=== PATIENT | male | born 1995 | race Caucasian/White ===

== ENCOUNTER → 2023-08-17 | Outpatient (CLI) | payer OTHER, SELFPAY ==
--- NOTE | 2023-08-17 16:27 | US_ITS ---
ACR Level 3 findings have been noted. An addendum which confirms receipt of the report will follow. INDICATION: CKD IV EXAMINATION: Ultrasound US Kidney(s) complete (eg, kidneys and bladder) TECHNIQUE: Delvalle scale and color doppler images were obtained of the kidneys. COMPARISON: None. FINDINGS: RIGHT KIDNEY: 5.8 x 4.0 x 3.2 cm. There is no hydronephrosis. No shadowing calculus, focal lesion or perinephric collection is demonstrated. Cortical atrophy with normal echotexture. LEFT KIDNEY: 8.2 x 5.3 x 3.9 cm. There is no hydronephrosis. Solid, exophytic lesion, 2.8 x 2.6 x 2.5 cm interpolar region with internal Doppler color flow. URINARY BLADDER: No acute abnormality. US/Kidney and Bladder IMPRESSION: No hydronephrosis bilaterally. Solid, 2.8 cm exophytic mass left kidney. Findings represent renal cell carcinoma until proven otherwise. Atrophic right kidney. Electronically Signed: Hernan Huff MD at 18:00 EST ,
== END | disposition home or self-care (01) ==
LOC: US 16:22
PROVIDERS: PCP Pediatrics; Referring Provider Internal Medicine Nephrology; Visit Provider Internal Medicine Nephrology
DX: N18.4 Chronic kidney disease, stage 4 (severe) (principal)
CPT/HCPCS: 76770

== ENCOUNTER → 2023-09-19 | Outpatient (CLI) | payer OTHER, SELFPAY ==
--- OUTSIDE RECORDS SUMMARY | 2023-09-19 07:10 | XMS RPT_ITS | CCD ---
Author Name Unknown Address [address] [place] [address] Organization [facility] Care Team Providers Care Artificial Flowers Supervisor Name Role Phone Esme Avalos PHY WO ID~[id number] Unavailable Unava ilable Allergies Allergy Classification Reported Allergen(s) Allergy Type Date of Onset Reaction(s) Facility (1 source) Cetirizine; Translations: [CETIRIZINE HCL] Drug Allergy 08-30-2005 [facility] Repository (1 source) montelukast; Translations: [MONTELUKAST SODIUM] Drug Allergy 08-30-2005 [facility] Repository Problems Active Problems Problem Classification Problem Date Documented Da te Episodic/Chronic Chronic kidney disease (1 source) Chronic kidney disease, stage 4 (severe); Translations: [Chronic kidney disease, stage IV (severe) ([facility])] Onset: 09-05-2023 Chronic Nutritional deficiencies (1 source) Vitamin D deficiency, unspecified; Translations: [Vitamin D deficiency] Onset: 09-05-2023 Chronic Past or Other Problems Problem Classification Problem Date Documented Da te Episodic/Chronic Genitourinary symptoms and ill-defined conditions (1 source) Proteinuria, unspecified; Translations: [Proteinuria, unspecified type] Onset: 07-11-2008 Episodic Results Test Name Value Interpretation Reference Range Facil ity Encounters Encounter Date Encounter Type Care Provider Facility Start: 09-05-2023 End: 09-06-2023 ambulatory Facility:[facility] Start: 03-07-2023 End: 03-08-2023 ambulatory Facility:[facility] Start: 09-25-2022 End: 09-25-2022 ambulatory Facility:[facility] Start: 05-27-2017 End: 05-27-2017 Emergency department patient visit Esme Avalos Facility:B Payers Date Payer Category Payer Private Health Insurance [id number] 2017 Unknown [id number] Summary Purpose Family History No Family History Records FoundNo Family History Records FoundNo Family History Records Found Advance Directives No Advanced Directives Records FoundNo Advanced Directives Records FoundNo Advanced Directives Records Found Additional Source Comments (unrecognized sect ion and content) No Status Records FoundNo Status Records FoundNo Status Records Found INFORMATION SOURCE (unrecogn ized section and content) DATE CREATED AUTHOR AUTHOR'S ORGANIZ ATION 02/05/2019 [facility] DATE CREATED AUTHOR AUTHOR'S ORGANIZ ATION 09/07/2023 [facility] FOR RECORDS PERTAINING TO PATIENTS WHO ARE OR HAVE BEEN ENROLLED IN A CHEMICAL DEPENDENCY/SUBSTANCEABUSE PROGRAM, SOME INFORMATION MAY BE OMITTED. This clinical summary was aggregated from multiple sources. Caution should be exercised in using it in the provision of clinical care. This summary normalizes information from multiple sources, and as a consequence, information in this document may materially change the coding, format and clinical context of patient data. In addition, data may be omitted in some cases. CLINICAL DECISIONS SHOULD BE BASED ON THE PRIMARY CLINICAL RECORDS. [employer] [facility]. provides no warranty or guarantee of the accuracy or completeness of information in this document.
--- NOTE | 2023-09-19 07:14 | MRI_ITS ---
STUDY: MRI ABDOMEN WITHOUT CONTRAST REASON FOR EXAM: Male, 27 years old. RENAL MASS,STAGE IV CHRONIC KIDNEY DISEASE TECHNIQUE: Standardized fat and water weighted pulse sequences were obtained in all 3 orthogonal planes. COMPARISON: Renal ultrasound dated August 17, 2023 FINDINGS: The visualized lung bases are unremarkable. The visualized portions of the heart are within normal limits. Normal liver. Normal gallbladder and extrahepatic biliary system. Normal spleen. Normal pancreas. Normal bilateral adrenal glands. There is moderate cortical atrophy of the right kidney, consistent with chronic medical renal disease. There is moderate cortical atrophy of the left kidney, consistent with chronic medical renal disease. There is a mass arising from the midpole and lateral aspect of the left kidney measuring 3.18 x 2.64 cm that is partially exophytic and considered a malignant neoplasm until proven otherwise. No IV contrast was administered therefore we are unable to determine if the mass enhances. Alternative considerations include dromedary hump, but malignancy has to be excluded first. Normal visualized stomach. Normal small intestine. Normal colon. Normal abdominal aorta. Normal inferior vena cava. Normal retroperitoneum. Normal abdominal wall. Normal osseous structures. MRI/Abdomen without Contrast IMPRESSION: Again malignant appearing mass arising from the lateral aspect of the left kidney that should be evaluated by urology/oncology. We have no prior imaging studies that would indicate this is a dromedary hump or other developmental lobularity. 1. There is a mass arising from the midpole and lateral aspect of the left kidney measuring 3.18 x 2.64 cm that is partially exophytic and considered a malignant neoplasm until proven otherwise. No IV contrast was administered therefore we are unable to determine if the mass enhances. Alternative considerations include dromedary hump, but malignancy has to be excluded first. 2. Postcontrast MR images should be performed for completeness Electronically Signed: Juancho Dudley MD at 10:[address] [facility] Reading Location ID and State: [id number] / RONAL[place] , Service support ,
== END | disposition home or self-care (01) ==
PROVIDERS: Referring Provider Internal Medicine Nephrology; Visit Provider Internal Medicine Nephrology
DX: N28.89 Other specified disorders of kidney and ureter (principal); N18.4 Chronic kidney disease, stage 4 (severe)
CPT/HCPCS: 74181

== ENCOUNTER 2023-10-09 07:22 | Outpatient (CLI) | payer OTHER, SELFPAY ==
[2023-10-09] VITALS (14 sets, daily range): BP systolic 143–170; BP diastolic 87–105; PULSE 73–96; RESP 18–25; TEMP 36.4; O2SAT 96–100; BMI 44.6
[2023-10-09 07:47] LABS: Hematocrit 44.2 % (40-54); Hemoglobin 14.4 g/dL (13.0-16.5); Mean Corp Hgb Conc 32.6 g/dL (32-36); Mean Corpuscular Hgb 28.1 pg (27.0-32.0); Mean Corpuscular Volume 86.2 fL (80-94); Mean Platelet Vol. 9.9 fl (6.2-12.0); Platelet Count 299 K/mm3 (150-450); RBC Distribution Width SD 40.1 fl (35.1-43.9); Red Blood Count 5.13 M/mm3 (4.6-6.2); White Blood Count 6.8 K/mm3 (4.4-11.0)
--- OUTSIDE RECORDS SUMMARY | 2023-10-09 07:49 | XMS RPT_ITS | CCD ---
Author Name Unknown Address [address] [place] [address] Organization [facility] Care Team Providers Care Floor Supervisor Name Role Phone Esme Avalos PHY WO [phone] Unavailable Unava ilable Allergies Allergy Classification Reported Allergen(s) Allergy Type Date of Onset Reaction(s) Facility (1 source) Cetirizine; Translations: [CETIRIZINE HCL] Drug Allergy 08-30-2005 [facility] Repository (1 source) montelukast; Translations: [MONTELUKAST SODIUM] Drug Allergy 08-30-2005 [facility] Repository Problems Active Problems Problem Classification Problem Date Documented Da te Episodic/Chronic Chronic kidney disease (1 source) Chronic kidney disease, stage 4 (severe); Translations: [Chronic kidney disease, stage IV (severe) ([facility])] Onset: 09-05-2023 Chronic Nutritional deficiencies (1 source) [...] Provider Facility Start: 09-05-2023 End: 09-06-2023 ambulatory Facility:[facility] Start: 03-07-2023 End: 03-08-2023 ambulatory Facility:[facility] Start: 09-25-2022 End: 09-25-2022 ambulatory Facility:[facility] Start: 05-27-2017 End: 05-27-2017 Emergency department patient visit Esme Avalos Facility:B Payers Date Payer Category Payer Private Health Insurance [id number] 2017 Unknown [id number] Summary Purpose Family History No Family History [...] DATE CREATED AUTHOR AUTHOR'S ORGANIZ ATION 02/05/2019 [facility] DATE CREATED AUTHOR AUTHOR'S ORGANIZ ATION 09/07/2023 [facility] FOR RECORDS PERTAINING TO PATIENTS WHO ARE [...] BE BASED ON THE PRIMARY CLINICAL RECORDS. [facility]. provides no warranty or guarantee of the accuracy or completeness of information in this document.
[2023-10-09 08:06] LABS: International Normalized Ratio 1.1; Prothrombin Time (Protime)PT. 14.1 SECONDS (11.7-14.9)
[2023-10-09 08:07] LABS: Partial Thromboplast Time 33.7 Seconds (24.1-36.2)
[2023-10-09] MEDS: 0.9% Saline Lock 10 ML Syringe IV (08:39)
[2023-10-09] MEDS: 0.9% Normal Saline (250mL Bag) 250 ML 15 ML IV (08:39)
[2023-10-09 08:45] LABS: Albumin, Serum 3.3 g/dL (3.2-5.0); BUN 48 mg/dL (7-18); BUN/Creat Ratio 12.9 RATIO (10-20); Calcium,Total 8.7 mg/dL (8.5-10.1); Chloride 113 mmol/L (98-107); Creatinine, Serum 3.71 mg/dL (0.70-1.30); EST Glomerular Filtration Rate 21 mL/min (>60); Est Glom Filt Rate - Afr Amer 26 mL/min (>60); Glucose 100 mg/dL (74-106); Phosphorus 3.6 mg/dL (2.5-4.9); Potassium 4.4 mmol/L (3.5-5.1); Sodium Level 142 mmol/L (136-145)
[2023-10-09] MEDS: Midazolam 2 MG/2 ML Syringe IV (09:04)
[2023-10-09] MEDS: fentaNYL 100 MCG/2 ML Ampul IV (09:05)
[2023-10-09] MEDS: Lidocaine 2% (20 ml mdv) 20 ML Vial INFILT (09:24)
[2023-10-09 09:27] LABS: PTHIN 357.6 pg/mL (18.4-80.1)
[2023-10-09 09:30] LABS: Vitamin D,25 Hydroxy 32.3 ng/mL
--- NOTE | 2023-10-09 09:30 | ASPIGT_PTH ---
PATHOLOGY RESULTS PATIENT: ESTHER BUENROSTRO LOC: CT U#:[id number] AGE/SX: 27/M ROOM: RE10/09/[address]: Dr. Jose Zuñiga MD : 1995 BED: DIS: 10/09/2023 SPEC #: [id number] RECD: 10/09/23 10:00 STATUS: KRISTEN REQ #: [id number] SELVIN: 10/09/23 09:[address]: Jose Zuñiga DEPT: SURGICAL PATHOLOGY RECD BY: Leesa Briones ENTERED: 10/09/23 10:12 SP TYPE: ASP RAD OTHR DR: Dr. Luz Brady MD No Primary Care Phys Consuelo Bradley, SAMINA-C Tissues: Kidney, NOS Procedures: Electron Microscopy (ACH) FNA Specimen Adequacy Sp St Grp II Kidney (ACH) Kidney Biopsy ([facility]) Special Stain Group II Surgery Specimen Level IV Imprint (control) HEADER OPERATION: CT-guided left renal biopsy PRE-OP DIAGNOSIS: Left kidney mass TISSUE SUBMITTED: Left kidney 18-gauge x4 MICROSCOPIC DIAGNOSIS Kidney, needle biopsy: No evidence of malignancy. Chronic changes, including moderate interstitial fibrosis and tubular atrophy, moderate arteriosclerosis, severe arteriolosclerosis and moderate arteriolar hyalinosis, most consistent with hypertensive nephrosclerosis (See Microscopic Description and Comment). COMMENT The specimen is evaluated at the time of biopsy by Dr. Carlson. Immediate Evaluation = Adequate for evaluation. There is no evidence of malignancy in the biopsy specimen. If the biopsy sampling is development representative of the radiographically described mass, the predominant finding in the biopsy is chronic changes, consistent between the pathologic findings and clinical history is recommended. The histopathological findings are most consistent with hypertensive nephrosclerosis given the presence of severe arteriolosclerosis, arteriolar hyalinosis and moderate arteriosclerosis. Hyaline globules in glomeruli are often seen in diabetes, but may be seen as part of the spectrum of hypertensive changes. The vaguely nodular mesangial matrix increase on light microscopy may be part of the general increase in mesangial matrix material and may not represent true nodularity. In the absence of a clinical history of diabetes, electron microscopy was performed to evaluate less common etiologies for nodular glomerulosclerosis. There is no evidence on electron microscopy for alternative etiologies, thus supporting mesangial matrix increase as part of the hypertensive changes. This case was discussed with Dr. Zuñiga on 10/11/23. Case has been reviewed in consultation with Dr. Dalton who concurs with the above diagnosis. IDC:[email or web address] MICROSCOPIC DESCRIPTION The specimen is sent to [facility] for consultation. The H&E-stained section received shows no evidence of malignancy. Using the provided unstained slides, a panel of stains to evaluate the chronic renal disease, PAS, Ruiz sliver, trichrome and an additional H&E stain were performed at [facility]. Sections show multiple cores of renal parenchyma. None of the sections show any evidence of malignancy. There are approximately 17 glomeruli present, 3 of which are globally sclerotic. Multiple glomeruli show hyaline globules. Glomeruli show an increase in mesangial matrix material, highlighted on PAS stains. The increased mesangial matrix material in a few of the glomeruli has a vaguely nodular appearance. Glomeruli show no evidence of segmental scars, crescent formation, necrosis, thrombosis or inflammation. PAS, sliver and trichrome stains show no evidence of glomerular basement membrane double contours, spikes or fuchsinophilic immune-type deposits. Trichrome stain shows interstitial fibrosis and tubular atrophy involving approximately 30-40% of the sampled cortical mass. In areas of scarring, there is a mild inflammatory infiltrate, predominantly composed of lymphocytes and plasma cells. Tubules are unremarkable. Arteries show moderate arteriosclerosis. Arterioles show severe arteriosclerosis involving both afferent and efferent arterioles. There is also moderate arteriolar hyalinosis in some arterioles. No frozen tissue is available for immunofluorescence studies. The formalin-fixed paraffin-embedded tissue was used for electron microscopy studies in order to further revaluate the light microscopy finding of vague nodularity of mesangial matrix increase in the absence of a documented history of diabetes. A portion of the tissue in the block was removed to process the specimen for electron microscopy; some tissue is left in the block for potential future studies. Toluidine blue stained thick sections were prepared and examined. There are five glomeruli present in the tissue selected for electron microscopy studies. A single glomerulus was imaged. The glomerular capillary loops are patent. In the glomerulus imaged, there is no significant increase in mesangial matrix material. The glomerular basement membranes are of approximately normal caliber. There is no significant increase in effacement of visceral epithelial foot processes. There is no evidence of basement membrane duplication or mesangial interposition. There is no evidence of electron-dense immune-type deposits. Tubules appear unremarkable. GROSS DESCRIPTION Received in fixative is one container labeled with the patient's name and designated left kidney. The specimen consists of multiple irregular fragments of urban soft tissue that in aggregate measure 1.5 x 0.3 x 0.1 cm. The specimen is totally submitted in one cassette. / PILLO:piyush 10/09/2023 CPT: [id number], [id number]
--- NOTE | 2023-10-09 10:05 | PCM.OP.PRO ---
Procedure Report Date of Procedure: 10/09/23 Assessment & Plan Assessment/Plan (1) Left renal mass: PLAN: PROCEDURE: CT GUIDED LEFT PERCUTANEOUS KIDNEY BIOPSY. ORDERING PROVIDER: Dr. Zuñiga INDICATION: Male, 27 years old. Left renal mass. PROVIDER: MARTY Adams CONSENT: Written informed consent was obtained having explained the risks, benefits and alternatives in detail with the patient. The specific risk of hemorrhage requiring further treatment or intervention was detailed and accepted. The patient accepted the risks and agreed to proceed. Laboratory review and clinical assessment was performed. PRE-PROCEDURE SEDATION ASSESSMENT: Current history and physical dictated by referring provider and reviewed. No clinical changes since date of exam. Patient has an ASA Class of 1. PROCEDURAL SEDATION PROTOCOL: The Drugs used were: 2 mg Versed, IV, and 50 mcg Fentanyl, IV. The sedation time was: 28 minutes, starting at 9:04 AM and terminated at 9:32 AM. The procedural sedation protocol was independently monitored by the department nurse. RADIATION DOSAGE (If Supplied By Facility): CTDIvol = 28.51 mGy, DLP = 584.61 mGycm Individualized dose optimization techniques were used for this CT. TECHNIQUE: The patient was placed on the CT table in the prone position. Multiple axial images were obtained from the lung base through the caudal extent of the kidneys. An appropriate entry site was identified and a tano made on the skin. The skin overlying the left posterior flank was prepped and draped in sterile fashion. 2% lidocaine was administered subcutaneously for local anesthesia. Using CT guidance, an 18-gauge coaxial biopsy device was advanced to the periphery of the left renal mass. A total of 4 core specimens were obtained. Specimens were microscopically reviewed by pathology in the CT suite and placed in formalin solution for further analysis. The needle was withdrawn. Hemostasis was achieved with manual compression and a sterile dressing was applied. The patient tolerated the procedure well without immediate complications. The patient returned to the holding bay in stable condition for nursing monitoring, per protocol. IMPRESSION: 1. Successful CT guided percutaneous left renal mass biopsy. Pathology results are pending. 2. Procedural Sedation protocol utilized with independent monitoring by the department nurse. Procedures Radiology Radiology CT Procedures: [id number] Biopsy Kidney
[2023-10-09 10:15] LABS: Protein, Urine (Random) 177.9 mg/dL (<11.9); Protein:Creat Ratio 4861 mg/g CRE (0-200)
== END 2023-10-09 23:59 | disposition home or self-care (01) ==
PROVIDERS: Internal Medicine Nephrology; Referring Provider Urology; Visit Provider Urology
DX: I12.9 Hypertensive chronic kidney disease with stage 1 through stage 4 chronic kidney disease, or unspecified chronic kidney disease (principal); N18.4 Chronic kidney disease, stage 4 (severe); E55.9 Vitamin D deficiency, unspecified
CPT/HCPCS: 50200; 36415; 77012; 80069; 82306; 82570; 83970; 84156; 85027; 85610; 85730; 88172; 88305; 88313; 88348; 99156; J7050; A4216

== ENCOUNTER 2023-10-20 06:06 | Emergency (ER) | payer OTHER, SELFPAY ==
[2023-10-20 06:07] VITALS: BP 181/107; PULSE 130; RESP 20; TEMP 37.9; O2SAT 98; BMI 47.6
[2023-10-20 06:10] VITALS: BP 181/107; PULSE 130; RESP 20; TEMP 37.9; O2SAT 98
--- NOTE | 2023-10-20 06:18 | RAD_ITS ---
EXAM: XR CHEST, 1 VIEW CLINICAL INDICATION: fever TECHNIQUE: Frontal view of the chest. COMPARISON: No relevant prior studies available. FINDINGS: LUNGS AND PLEURAL SPACES: Unremarkable. No consolidation or edema. No pneumothorax. No effusion. HEART: Unremarkable. Cardiac silhouette not enlarged. MEDIASTINUM: Central airways and mediastinal contour are unremarkable. BONES/JOINTS: Unremarkable. No acute fracture. SOFT TISSUES: Unremarkable. RAD/Chest 1 View (Portable) IMPRESSION: No radiographic evidence of acute cardiopulmonary disease. Electronically Signed: Aakash Glez MD at 7:51 EST ,
--- NOTE | 2023-10-20 06:18 | RAD_ITS ---
EXAM: XR LEFT ANKLE COMPLETE, 3 OR MORE VIEWS CLINICAL INDICATION: pain TECHNIQUE: Frontal, lateral and oblique views of the left ankle. COMPARISON: No relevant prior studies available. FINDINGS: BONES/JOINTS: Unremarkable. No acute fracture. No subluxation. Normal alignment. Preservation of the joint space. No sclerotic or destructive changes observed. SOFT TISSUES: Unremarkable. No soft tissue swelling or gas. No radiopaque foreign body. RAD/Ankle min 3 Views IMPRESSION: Negative left ankle x-rays. Electronically Signed: Aakash Glez MD at 7:48 EST ,
--- NOTE | 2023-10-20 06:21 | CT_ITS ---
EXAM: CT ABDOMEN AND PELVIS WITHOUT INTRAVENOUS CONTRAST CLINICAL INDICATION: fever, recent renal biopsy TECHNIQUE: Helically acquired images were obtained of the abdomen and pelvis without intravenous contrast. This CT exam was performed using one or more of the following dose reduction techniques: automated exposure control, adjustment of the mA and/or kV according to patient size, and/or use of iterative reconstruction technique. RADIATION DOSE: CTDIvol = 22.92 mGy, DLP = 1185.58 mGy-cm COMPARISON: MRI abdomen 09/19/2023. FINDINGS: LOWER THORAX: Unremarkable. Lung bases are clear. No cardiomegaly. No significant pericardial effusion. ABDOMEN: LIVER: Unremarkable. Homogeneous. GALLBLADDER AND BILE DUCTS: Unremarkable. No calcified gallstones. No gallbladder distention or wall edema. No intra- or extrahepatic biliary ductal dilation. PANCREAS: Unremarkable. No focal cystic mass. SPLEEN: Unremarkable. Normal size without focal cystic or solid mass. ADRENALS: Unremarkable. No nodules. KIDNEYS AND URETERS: Fluid collecting in the left posterior perinephric and pararenal spaces measuring up to 6 x 6.4 x 2.5 cm. Left renal lesion again noted. Bilateral renal atrophy. No hydronephrosis. STOMACH AND BOWEL: Unremarkable. No stomach or bowel distention. No focal inflammatory change. PELVIS: APPENDIX: The appendix is normal. BLADDER: Unremarkable. REPRODUCTIVE: Unremarkable as visualized. No mass. ABDOMEN and PELVIS: INTRAPERITONEAL SPACE: Unremarkable. No ascites or other fluid collection. No free air. BONES/JOINTS: Unremarkable. No suspicious lytic or blastic abnormality. SOFT TISSUES: Unremarkable. No discrete abdominal or pelvic wall hernia. VASCULATURE: Unremarkable. Abdominal aorta is non-dilated. LYMPH NODES: Unremarkable. No enlarged lymph nodes. CT/Abdomen/Pelvis without Cont IMPRESSION: Fluid collecting in the left posterior perinephric and pararenal spaces of the retroperitoneum measuring up to 6 x 6.4 x 2.5 cm. This may indicate postbiopsy blood products or infected fluid collection given the clinical history. Further evaluation limited without intravenous contrast. Electronically Signed: Aakash Glez MD at 7:59 EST ,
--- NOTE | 2023-10-20 06:25 | EX.ED.DYSGE1 ---
HPI History of Present Illness Chief Complaint: Lower Extremity Injury Detail of Chief Complaint: Fever, left Achilles pain Narrative Narrative: Patient presents secondary to left Achilles pain that has had for the past couple of days. He states he typically will get this about twice a year when he needs to switch his work shoes. Usually he can rest and ice the area but did not improve this time. Patient's checked his temperature just for leaving the house this morning and noted he had a temperature of 101.8. Patient states he does not feel sick and did not realize he had a fever. He did have a CT-guided renal biopsy on October 09. He states he took a week off work after this and did not go back to work until the . He states he knows he overdid it and was on his feet too much on the , and that evening his pain started in his leg. PFSH PFS Medical History CKD (chronic kidney disease) Home Medications dapagliflozin propanediol 10 mg tablet (Farxiga) 10 mg PO DAILY 10/09/23 [History Last Taken Unknown] ergocalciferol (vitamin D2) 1,250 mcg (50,000 unit) capsule 1,250 mcg PO QWEEK 10/09/23 [History Last Taken Unknown] sodium bicarbonate 650 mg tablet 1,950 mg PO BID 10/09/23 [History Last Taken Unknown] prednisone 20 mg tablet 40 mg (2 x 20 mg) PO DAILY #8 tabs 10/20/23 [Rx Last Taken Unknown] Allergy/AdvReac Type Severity Reaction Status Date / Time cetirizine [From Zyrtec] Allergy Mild PT UNSURE Verified 10/08/23 11:28 OF REACTION montelukast [From Singulair] Allergy Mild PT UNSURE Verified 10/08/23 11:28 OF REACTION Surgical History H/O adenoidectomy History of tonsillectomy Social History Smoking Status: Never smoker ROS ROS ED Constitutional Constitutional ED: Reports fever(s); Denies chills Eyes Eyes: Denies discharge from eye(s) ENT ENT ED: Denies discharge from eye(s), rhinorrhea or sore throat Cardiovascular Cardiovascular: Denies chest pain or palpitations Respiratory/Chest Respiratory/Chest: Denies cough or dyspnea Gastrointestinal Gastrointestinal: Denies abdominal pain, diarrhea, nausea or vomiting Genitourinary Genitourinary ED: Denies dysuria Musculoskeletal Musculoskeletal: Reports extremity pain; Denies back pain Integumentary Denies Abrasions or rash Neurologic Neurologic: Denies headache(s) or weakness Psychiatric Psychiatric: Denies anxiety or depression Allergic/Immunologic Allergic/Immunologic ED: Denies lip swelling or urticaria EXAM Physical Exam Const Vital Signs: 10/20/23 06:07 10/20/23 06:10 10/20/23 06:11 Temperature 100.3 F H 100.3 F H Temperature Source Oral Oral Pulse Rate 130 H 130 H Respiratory Rate 20 H 20 H Respiratory Effort Normal Respiratory Pattern Normal Blood Pressure 181/107 H 181/107 H Blood Pressure Mean 131 131 Pulse Ox 98 98 Oxygen Delivery Method Room Air Room Air 10/20/23 07:10 10/20/23 07:10 Temperature 98 F 98 F Temperature Source Temporal Temporal Pulse Rate 90 90 Respiratory Rate 20 H 20 H Respiratory Effort Respiratory Pattern Blood Pressure 162/103 H 162/103 H Blood Pressure Mean 122 122 Pulse Ox 98 98 Oxygen Delivery Method Room Air Room Air Positive well nourished and well developed General Appearance ED: well developed HEENT Reports moist mucous membranes Eyes EOMs intact bilaterally Chest Wall inspection of chest normal and palpation of chest normal Resp normal respiratory effort and clear to auscultation bilaterally Cardio regular rate and regular rhythm GI non-tender Palpation: soft Extremity Extremity Narrative: Reproducible tenderness at the Achilles insertion site onto the calcaneus of his left lower extremity. No erythema or excessive skin warmth. Mild edema noted to the area. Neuro oriented x3 and no sensory deficits noted Motor Exam: strength 5/5 throughout Psych mental status grossly normal Skin no rashes or lesions noted MDM MDM MDM Narrative Medical decision making narrative: Given the patient's fever with recent biopsy, further workup is undertaken. IV line initiated. Labwork obtained to evaluate for leukocytosis, anemia, and electrolyte derangement. Urinalysis obtained to evaluate for infection/hematuria. Chest x-ray obtained to evaluate for acute lung pathology, cardiac size, or mediastinal abnormality. X-ray of the left ankle obtained to ensure no bony abnormality at the Achilles insertion site and area of pain. CT flank obtained to ensure no acute abnormality at the renal biopsy site such as hematoma or abscess. Swab for COVID, influenza, and RSV also obtained. Patient given Tylenol for fever along with IV fluids. History & Record Review Discussion w/independent historian: Patient and Significant other Additional record(s) reviewed:: Prior labs Lab Data Attestation: I reviewed the patient's lab results. Labs: Laboratory Results - last 24 hr 10/20/23 10/20/23 07:00 07:40 WBC 11.2 H RBC 4.64 Hgb 13.0 Hct 39.1 L MCV 84.3 MCH 28.0 MCHC 33.2 RDW Std Deviation 38.1 RDW Coeff of [place] 12.6 Plt Count 364 MPV 9.4 Immature Gran % (Auto) 0.400 Neut % (Auto) 81.3 H Lymph % (Auto) 12.1 L [place] % (Auto) 5.5 Eos % (Auto) 0.3 Baso % (Auto) 0.4 Absolute Neuts (auto) 9.1 H Absolute Lymphs (auto) 1.35 Nucleated RBC % 0 Sodium 139 Potassium 4.3 Chloride 109 H Carbon Dioxide 25.0 Anion Gap 5 BUN 49 H Creatinine 4.12 H Estim Creat Clear Calc 33.28 Est GFR (MDRD) Af Amer 23 L Est GFR (MDRD) Non-Af 19 L BUN/Creatinine Ratio 11.9 Glucose 117 H Calcium 9.5 Urine Color Yellow Urine Clarity Clear Urine pH 7.0 Ur Specific [place] 1.010 Urine Protein 500 H Urine Glucose (UA) 250 H Urine Ketones Negative Urine Occult Blood 50 H Urine Nitrite Negative Urine Bilirubin Negative Urine Urobilinogen Normal Ur Leukocyte Esterase Negative Urine RBC 0 SEEN Urine WBC 0 SEEN Ur Squamous Epith Cells 0 SEEN Urine Bacteria 0 SEEN Urine Mucus 0 SEEN Radiography Diagnostic Testing: Clinical Impression(s) from Imaging Studies Ankle X-Ray 10/20/23 06:18 IMPRESSION: Negative left ankle x-rays. Electronically Signed: Aakash Gelz MD at 7:48 EST , Chest X-Ray 10/20/23 06:18 IMPRESSION: No radiographic evidence of acute cardiopulmonary disease. Electronically Signed: Aakash Glez MD at 7:51 EST , Abdomen/Pelvis CT 10/20/23 06:21 IMPRESSION: Fluid collecting in the left posterior perinephric and pararenal spaces of the retroperitoneum measuring up to 6 x 6.4 x 2.5 cm. This may indicate postbiopsy blood products or infected fluid collection given the clinical history. Further evaluation limited without intravenous contrast. Electronically Signed: Aakash Glez MD at 7:59 EST , Treatment and Re-Evaluation :: Portable chest x-ray per my interpretation feels no evidence of focal infiltrate. Radiology interpretation reviewed and agrees. Left ankle x-rays reveal no obvious bony abnormality per my interpretation and no fluid collection. Radiology interpretation reviewed and agrees. CBC reveals white count of 11.2 with 81% neutrophils. Hemoglobin is normal at 13. Chemistry studies reveal a BUN of 42 and a creatinine of 4.12. I only have 1 prior creatinine available to compare to and at that time it was 3.71. Urinalysis reveals no evidence of acute infection. CT scan of the abdomen and pelvis does reveal fluid collection in the left posterior perinephric and pararenal spaces of the retroperitoneum. This may indicate postbiopsy blood products or infected fluid collection. Patient's CT was reviewed by Dr. Zuñiga. He does feel this is all postprocedure bleeding and no evidence of acute infection. Patient has evidence of tendinitis at the Achilles insertion site. He will be treated with a short course of steroids. He will continue to monitor his symptoms for development of cough, congestion, any other source of fever. His COVID, influenza, and RSV test here are negative. Cultures will be sent. Discharge Plan Triage Chief Complaint: Lower Extremity Injury Other Complaint: Fever ED Provider: Sharita Roberts Dx/Rx/DC Orders Clinical Impression: Fever of unknown origin (FUO), Left ankle tendonitis Instructions: ED FUO Adult, ED Tendonitis Prescriptions: New prednisone 20 mg tablet 40 mg PO DAILY Qty: 8 0RF No Action dapagliflozin propanediol [Farxiga] 10 mg tablet 10 mg PO DAILY sodium bicarbonate 650 mg tablet 1,950 mg PO BID ergocalciferol (vitamin D2) 1,250 mcg (50,000 unit) capsule 1,250 mcg PO QWEEK Primary Care Provider: Care Physician,No Primary Referrals: Jose Zuñiga MD [Med Staff - Active Staff] - [facility] appointment Care Physician,No Primary [Primary Care Provider] -
--- OUTSIDE RECORDS SUMMARY | 2023-10-20 06:42 | XMS RPT_ITS | CCD ---
Author Name Unknown Address [address] [place] [address] Organization [facility] Care Team Providers Care Statistical Modeler Name Role Phone Esme Avalos PHY WO [id number] Unavailable Unava ilable Allergies Allergy Classification Reported Allergen(s) Allergy Type Date of Onset Reaction(s) Facility (1 source) Cetirizine; Translations: [CETIRIZINE HCL] Drug Allergy 08-30-2005 [facility] Repository (1 source) montelukast; Translations: [MONTELUKAST SODIUM] Drug Allergy 08-30-2005 [facility] Repository Problems Active Problems Problem Classification Problem Date Documented Da te Episodic/Chronic Chronic kidney disease (1 source) Chronic kidney disease, stage 4 (severe); Translations: [Chronic kidney disease, stage IV (severe) ([facility])] Onset: 09-05-2023 Chronic Nutritional deficiencies [...] Provider Facility Start: 09-05-2023 End: 09-06-2023 ambulatory Facility:[facility] Start: 03-07-2023 End: 03-08-2023 ambulatory Facility:[facility] Start: 09-25-2022 End: 09-25-2022 ambulatory Facility:[facility] Start: 05-27-2017 End: 05-27-2017 Emergency department patient visit Esme Avalos Facility:B Payers Date Payer Category Payer Private Health Insurance [id number] 2017 Unknown [id number] Summary Purpose Family History No Family History [...] DATE CREATED AUTHOR AUTHOR'S ORGANIZ ATION 02/05/2019 [facility] DATE CREATED AUTHOR AUTHOR'S ORGANIZ ATION 09/07/2023 [facility] FOR RECORDS PERTAINING TO PATIENTS WHO ARE [...] BE BASED ON THE PRIMARY CLINICAL RECORDS. [email or web address] [facility]. provides no warranty or guarantee of the accuracy or completeness of information in this document.
[2023-10-20] MEDS: Acetaminophen 500 MG Tablet 1000 MG PO (06:54)
[2023-10-20] MEDS: 0.9% Normal Saline (1000mL) 1,000 ML 150 ML IV (06:54)
[2023-10-20 07:07] LABS: Absolute Lymphocyte Count 1.35 X10^3/uL (0.83-4.51); Absolute Neutrophil Count 9.1 X10^3/uL (2.0-7.7); Basophil# 0.05 X10^3/uL; Basophil% 0.4 % (0-1); Eosinophil# 0.03 X10^3/uL; Eosinophils% 0.3 % (0-5); Hematocrit 39.1 % (40-54); Lymphocyte # 1.35 X10^3/ul (0.83-4.51); Lymphocyte % 12.1 % (19-41); Mean Corp Hgb Conc 33.2 g/dL (32-36); Mean Corpuscular Volume 84.3 fL (80-94); Mean Platelet Vol. 9.4 fl (6.2-12.0); Monocyte# 0.61 X10^3/uL; Monocyte% 5.5 % (0-10); NRBC Flagged by Analyzer 0 % (0-5); Neutrophil % 81.3 % (47-70); Platelet Count 364 K/mm3 (150-450); RBC Distribution Width CV 12.6 % (11.6-14.6); RBC Distribution Width SD 38.1 fl (35.1-43.9); Red Blood Count 4.64 M/mm3 (4.6-6.2); White Blood Count 11.2 K/mm3 (4.4-11.0)
[2023-10-20 07:10] VITALS: BP 162/103; PULSE 90; RESP 20; TEMP 36.6; O2SAT 98
[2023-10-20 07:19] LABS: Anion Gap 5 (5-15); BUN 49 mg/dL (7-18); BUN/Creat Ratio 11.9 RATIO (10-20); Calcium,Total 9.5 mg/dL (8.5-10.1); Chloride 109 mmol/L (98-107); Creatinine, Serum 4.12 mg/dL (0.70-1.30); EST Glomerular Filtration Rate 19 mL/min (>60); Est Glom Filt Rate - Afr Amer 23 mL/min (>60); Estimated Creatinine Clearance 33.28 ml/min; Glucose 117 mg/dL (74-106); Potassium 4.3 mmol/L (3.5-5.1); Sodium Level 139 mmol/L (136-145)
[2023-10-20 07:45] LABS: Bacteria 0 SEEN /hpf (None Seen); Mucous, Urine 0 SEEN /hpf (<or=2+); Red Blood Cells-Urine 0 SEEN /hpf (0-5); Squamous Epithelial Cells - UA 0 SEEN /hpf (0-5); White Blood Cells 0 SEEN /hpf (0-5)
[2023-10-20 07:46] LABS: Color, Urine Yellow (Yellow); Glucose, Dipstick 250 mg/dl (Normal); Ketone-Dipstick Negative (Negative); Leukocyte Esterase-Dipstick Negative /ul (Negative); Nitrite-Dipstick Negative (Negative); Occult Blood-Urine 50 /ul (Negative); Protein-Dipstick 500 mg/dl (Negative); Urine Bilirubin Dipstick Negative (Negative); Urine Clarity Clear (Clear); Urine Urobilinogen Normal (Normal)
[2023-10-20] MEDS: predniSONE 20 MG Tablet 40 MG PO (08:56)
[2023-10-20 09:09] VITALS: BP 165/79; PULSE 43; RESP 16; TEMP 36.2; O2SAT 99
== END 2023-10-20 09:10 | disposition home or self-care (01) ==
PROVIDERS: Emergency Provider Emergency Medicine; Visit Provider Emergency Medicine
DX: M76.62 Achilles tendinitis, left leg (principal); X58.XXXA Exposure to other specified factors, initial encounter; R50.9 Fever, unspecified
CPT/HCPCS: 36415; 71045; 73610; 74176; 80048; 81001; 85025; 87040; 87086; 87631; 96360; 96361; 99285; J7030

== ENCOUNTER → 2024-03-21 | Outpatient (CLI) | payer OTHER, SELFPAY ==
--- NOTE | 2024-03-21 06:50 | MRI_ITS ---
EXAM: MR ABDOMEN WITHOUT INTRAVENOUS CONTRAST CLINICAL INDICATION: BENIGN NEOPLASM L KIDNEY TECHNIQUE: Multiplanar and multisequence MR images of the abdomen without intravenous contrast. COMPARISON: CT abdomen 10/20/2023, MR Abdomen dated 09/19/2023 FINDINGS: LOWER THORAX: Normal. No pleural effusion. LIVER: Normal. Normal morphology. GALLBLADDER AND BILE DUCTS: Normal. No gallstones. No gallbladder distention or wall edema. No intra- or extrahepatic biliary ductal dilation. PANCREAS: Normal. No focal cystic mass. SPLEEN: Normal. Normal size without focal cystic or solid mass. ADRENALS: Normal. No nodules. KIDNEYS AND URETERS: Stable 3 cm lateral mass arising from the inner pole region of the left kidney demonstrating isointensity with the adjacent renal parenchyma. The left kidney measures 9.1 cm in length and the right kidney 6.2 cm. Lobulated contour of the right kidney suggestive of cortical scarring. No hydronephrosis. INTRAPERITONEAL SPACE: Normal. No ascites or other fluid collection. No free air. VASCULATURE: Normal. Abdominal aorta is non-dilated. LYMPH NODES: No enlarged lymph nodes. MRI/Abdomen without Contrast IMPRESSION: No significant change in the left renal mass. Stable small kidneys. Electronically Signed: Donnie Vogt MD at 15:28 EDT ,
== END | disposition home or self-care (01) ==
PROVIDERS: Referring Provider Urology; Visit Provider Urology
DX: D30.02 Benign neoplasm of left kidney (principal)
CPT/HCPCS: 74181

== ENCOUNTER → 2024-03-31 | Outpatient (CLI) | payer OTHER, SELFPAY ==
[2024-03-31 11:57] LABS: BUN 41 mg/dL (7-18); Calcium,Total 8.8 mg/dL (8.5-10.1); Chloride 105 mmol/L (98-107); Creatinine, Serum 4.55 mg/dL (0.70-1.30); EST Glomerular Filtration Rate 17 mL/min (>60); Est Glom Filt Rate - Afr Amer 20 mL/min (>60); Glucose 90 mg/dL (74-106); Phosphorus 3.1 mg/dL (2.5-4.9); Potassium 4.2 mmol/L (3.5-5.1); Sodium Level 136 mmol/L (136-145)
[2024-03-31 12:15] LABS: Protein, Urine (Random) 136.2 mg/dL (<11.9); Protein:Creat Ratio 7828 mg/g CRE (0-200)
== END | disposition home or self-care (01) ==
PROVIDERS: Referring Provider Internal Medicine Nephrology; Visit Provider Internal Medicine Nephrology
DX: N18.4 Chronic kidney disease, stage 4 (severe) (principal)
CPT/HCPCS: 36415; 80069; 82570; 84156

== ENCOUNTER → 2024-09-05 | Outpatient (CLI) | payer BC, SELFPAY ==
[2024-09-05 09:59] LABS: Protein, Urine (Random) 203.1 mg/dL (<11.9); Protein:Creat Ratio 5015 mg/g CRE (0-200)
[2024-09-05 10:08] LABS: Albumin, Serum 3.3 g/dL (3.2-5.0); BUN 46 mg/dL (7-18); BUN/Creat Ratio 8.8 RATIO (10-20); Calcium,Total 8.8 mg/dL (8.5-10.1); Chloride 110 mmol/L (98-107); Creatinine, Serum 5.23 mg/dL (0.70-1.30); EST Glomerular Filtration Rate 14 mL/min (>60); Est Glom Filt Rate - Afr Amer 17 mL/min (>60); Glucose 99 mg/dL (74-106); Phosphorus 3.6 mg/dL (2.5-4.9); Potassium 4.2 mmol/L (3.5-5.1); Sodium Level 139 mmol/L (136-145)
== END | disposition home or self-care (01) ==
PROVIDERS: Referring Provider Internal Medicine Nephrology; Visit Provider Internal Medicine Nephrology
DX: N18.4 Chronic kidney disease, stage 4 (severe) (principal)
CPT/HCPCS: 36415; 80069; 82570; 84156

== ENCOUNTER → 2024-09-16 | Outpatient (CLI) | payer BC, SELFPAY ==
--- NOTE | 2024-09-16 12:42 | MRI_ITS ---
MRI Abdomen w/out contrast 09/16/2024 1:23 PM COMPARISON: 03/21/2024 CLINICAL HISTORY: NEOPLASM LEFT KIDNEY, CHRONIC KIDNEY DISEASE TECHNIQUE: Multiplanar T1 and T2 weighted images were obtained through the abdomen without IV contrast FINDINGS: Liver: Unremarkable Gallbladder: Unremarkable Pancreas: Unremarkable Spleen: Unremarkable Adrenal Glands: Unremarkable Kidneys: Stable 3.1 x 2.6 cm T1 and T2 isointense mass in the left mid renal pole. No signal drop on T1 opposed phase images compared to T1 in phase images. No signal drop on fat saturation sequences. Mild atrophy of the bilateral kidneys. GI Tract: Unremarkable Lymphadenopathy: Absent Ascites: Absent Bones: No suspicious lesions MRI/Abdomen without Contrast IMPRESSION: Limited examination due to absence of postcontrast images. Despite limitations: Stable indeterminate 3.1 cm mass in the left mid renal pole. Of note, if patient''s GFR is above 30 then this patient can receive Gadolinium without risk of nephrogenic systemic fibrosis. Electronically Signed: Chris Min MD at 7:55 EST ,
== END | disposition home or self-care (01) ==
LOC: MRI 12:20
PROVIDERS: Referring Provider Urology; Visit Provider Urology
DX: D41.02 Neoplasm of uncertain behavior of left kidney (principal); N18.9 Chronic kidney disease, unspecified
CPT/HCPCS: 74181

== ENCOUNTER → 2025-01-05 | Outpatient (CLI) | payer BC, SELFPAY ==
[2025-01-05 08:53] LABS: Protein:Creat Ratio 3813 mg/g CRE (0-200)
[2025-01-05 09:16] LABS: Albumin, Serum 3.9 g/dL (3.5-5.0); Anion Gap 15 (5-15); BUN 50 mg/dL (4-19); BUN/Creat Ratio 8.9 RATIO (10-20); Calcium,Total 8.6 mg/dL (7.6-11.0); Carbon Dioxide 19.3 mmol/L (21.0-32.0); Chloride 107 mmol/L (98-108); Creatinine, Serum 5.57 mg/dL (0.70-1.20); EST Glomerular Filtration Rate 13 (>60); Glucose 100 mg/dL (70-99); Potassium 4.3 mmol/L (3.3-5.1); Sodium Level 141 mmol/L (133-145)
[2025-01-05 09:54] LABS: Phosphorus 5.5 mg/dL (2.7-4.5)
== END | disposition home or self-care (01) ==
LOC: LAB 06:14
PROVIDERS: Referring Provider Internal Medicine Nephrology; Visit Provider Internal Medicine Nephrology
DX: N18.4 Chronic kidney disease, stage 4 (severe) (principal)
CPT/HCPCS: 36415; 80069; 82570; 84156

== ENCOUNTER → 2025-03-10 | Outpatient (CLI) | payer BC, SELFPAY ==
[2025-03-10 16:37] LABS: Albumin, Serum 4.1 g/dL (3.5-5.0); Anion Gap 15 (5-15); BUN 61 mg/dL (4-19); BUN/Creat Ratio 10.5 RATIO (10-20); Calcium,Total 8.4 mg/dL (7.6-11.0); Carbon Dioxide 18.1 mmol/L (21.0-32.0); Chloride 105 mmol/L (98-108); Glucose 88 mg/dL (70-99); Potassium 4.1 mmol/L (3.3-5.1)
[2025-03-10 17:05] LABS: Creatinine, Urine (random) 32.40 mg/dL (39.00-259.00)
[2025-03-10 17:07] LABS: Protein, Urine (Random) 147.0 mg/dL (0.0-12.0); Protein:Creat Ratio 4537 mg/g CRE (0-200)
== END | disposition home or self-care (01) ==
PROVIDERS: PCP Family Medicine; Referring Provider Internal Medicine Nephrology; Visit Provider Internal Medicine Nephrology
DX: N18.4 Chronic kidney disease, stage 4 (severe) (principal)
CPT/HCPCS: 36415; 80069; 82570; 84156

== ENCOUNTER → 2025-08-03 | Outpatient (CLI) | payer BC, SELFPAY ==
[2025-08-03 17:15] LABS: Hematocrit 39.8 % (40-54); Hemoglobin 13.4 g/dL (13.0-16.5); Mean Corp Hgb Conc 33.7 g/dL (32-36); Mean Corpuscular Volume 85.4 fL (80-94); Mean Platelet Vol. 10.4 fl (6.2-12.0); Platelet Count 321 K/mm3 (150-450); RBC Distribution Width CV 13.6 % (11.6-14.6); RBC Distribution Width SD 42.1 fl (35.1-43.9); Red Blood Count 4.66 M/mm3 (4.6-6.2); White Blood Count 7.3 K/mm3 (4.4-11.0)
[2025-08-03 17:40] LABS: Creatinine, Urine (random) 45.50 mg/dL (39.00-259.00)
[2025-08-03 17:45] LABS: PTHIN 577 pg/mL (11-61)
[2025-08-03 17:52] LABS: Protein, Urine (Random) 211.0 mg/dL (0.0-12.0); Protein:Creat Ratio 4637 mg/g CRE (0-200)
[2025-08-03 18:02] LABS: Albumin, Serum 4.3 g/dL (3.5-5.0); Anion Gap 17 (5-15); BUN 65 mg/dL (4-19); BUN/Creat Ratio 9.1 RATIO (10-20); Calcium,Total 7.9 mg/dL (7.6-11.0); Carbon Dioxide 18.0 mmol/L (21.0-32.0); Chloride 106 mmol/L (98-108); Glucose 93 mg/dL (70-99); Potassium 3.7 mmol/L (3.3-5.1); Vitamin D,25 Hydroxy 27.1 ng/mL (30-100)
== END | disposition home or self-care (01) ==
LOC: LAB 15:14
PROVIDERS: PCP Family Medicine; Referring Provider Internal Medicine Nephrology; Visit Provider Internal Medicine Nephrology
DX: N18.4 Chronic kidney disease, stage 4 (severe) (principal)
CPT/HCPCS: 36415; 80069; 82306; 82570; 83970; 84156; 85027